=== PATIENT | female | born 1965 | race Hispanic/Latino ===

== ENCOUNTER → 2023-06-07 | Outpatient (CLI) | payer MEDICARE ==
[2023-06-07 10:10] LABS: HEMATOCRIT(ML) 43.4 % (36.0-46.0); HEMOGLOBIN 14.4 g/dL (12.0-15.0); MEAN CORP HGB 30.5 pg (26-34); MEAN CORP HGB CONCENTRATION 33.2 g/dL (33-36.5); MEAN CORP VOLUME 91.9 fL (78-100); RED BLOOD CELL 4.72 10^6/uL (4.00-5.20); RED CELL DISTRIBUTION WIDTH 11.8 % (11.5-14.5); WHITE BLOOD CELL 4.6 10^3/uL (4.5-11.0)
[2023-06-07 10:32] LABS: ALBUMIN(ML) 3.7 g/dL (3.4-5.0); ALBUMIN/GLOBULIN RATIO 1.193; ANION GAP 10.8; BUN/CREATININE RATIO 25.64 (10.0-20.0); CALCIUM 9.3 mg/dL (8.4-10.5); CARBON DIOXIDE 26.4 mmol/L (20.0-32); CREATININE SERUM 0.78 mg/dL (0.59-1.40); EST GFR, NON-AA 75.6 (>/=60); LDL/HDL RATIO 2.2; POTASSIUM 4.2 mmol/L (3.6-5.2)
== END | disposition home or self-care (01) ==
LOC: LAB 09:50
PROVIDERS: ATTEND Nurse Practitioner Family
DX: I10 Essential (primary) hypertension (principal); K59.00 Constipation, unspecified; E11.9 Type 2 diabetes mellitus without complications
CPT/HCPCS: 36415; 80053; 80061; 83036; 84439; 84443; 85027

== ENCOUNTER → 2023-07-28 | Outpatient (CLI) | payer MEDICARE ==
[2023-07-28 11:43] LABS: HEMOGLOBIN 14.5 g/dL (12.0-15.0); MEAN CORP HGB 30.7 pg (26-34); MEAN CORP HGB CONCENTRATION 33.7 g/dL (33-36.5); MEAN CORP VOLUME 90.9 fL (78-100); RED BLOOD CELL 4.73 10^6/uL (4.00-5.20); RED CELL DISTRIBUTION WIDTH 11.8 % (11.5-14.5); WHITE BLOOD CELL 4.8 10^3/uL (4.5-11.0)
[2023-07-28 12:30] LABS: ALANINE AMINOTRANSFERASE(ML) 18 U/L (12-78); ALBUMIN(ML) 3.7 g/dL (3.4-5.0); ALBUMIN/GLOBULIN RATIO 1.121; ALKALINE PHOSPHATASE 81 U/L (50-136); ASPARTATE AMINO TRANSFERASE 13 U/L (0-35); CALCIUM 9.1 mg/dL (8.4-10.5); CARBON DIOXIDE 27.1 mmol/L (20.0-32); CREATINE KINASE 85 U/L (26-192); CREATINE KINASE MB 1.6 ng/mL (0.5-3.6); CREATININE SERUM 0.78 mg/dL (0.59-1.40); EST GFR, NON-AA 75.6 (>/=60); GLUCOSE 94 mg/dL (74-106); POTASSIUM 4.1 mmol/L (3.6-5.2); SODIUM 140 mmol/L (132-145)
[2023-07-28 12:32] LABS: TROPONIN I HIGH SENSITIVITY < 4 ng/L (0-50)
== END | disposition home or self-care (01) ==
LOC: RAD 11:20
PROVIDERS: ATTEND Nurse Practitioner Family
DX: R07.9 Chest pain, unspecified (principal); R06.00 Dyspnea, unspecified
CPT/HCPCS: 36415; 71046; 80053; 82550; 82553; 83615; 83874; 83880; 84484; 85027

== ENCOUNTER → 2025-05-10 | Outpatient (CLI) | payer MEDICARE ==
[2025-05-10 13:45] LABS: HEMATOCRIT(ML) 42.6 % (36.0-46.0); MEAN CORP HGB 30.6 pg (26-34); MEAN CORP HGB CONCENTRATION 33.6 g/dL (33-36.5); MEAN CORP VOLUME 91.0 fL (78-100); RED BLOOD CELL 4.68 10^6/uL (4.00-5.20); RED CELL DISTRIBUTION WIDTH 11.8 % (11.5-14.5); WHITE BLOOD CELL 3.8 10^3/uL (4.5-11.0)
[2025-05-10 13:46] LABS: BASOPHIL # 0.0 10^3/uL (0.0-0.1); BASOPHIL % 0.3 % (0.1-1.2); EOSINOPHIL # 0.0 10^3/uL (0.0-0.2); EOSINOPHIL % 1.1 % (0.0-5.0); IG % 0.00 % (0.00-0.50); LYMPHOCYTES # 1.28 10^3/uL1 (1.0-4.8); LYMPHOCYTES % 33.7 % (24.0-44.0); MONOCYTES # 0.3 10^3/uL (0.3-0.8); MONOCYTES % 7.1 % (5.0-12.0); NEUTROPHIL # 2.2 10^3/uL (1.8-7.7); NEUTROPHILS % 57.8 % (41.0-85.0)
[2025-05-10 14:17] LABS: ALANINE AMINOTRANSFERASE(ML) 23.0 U/L (12-78); ALBUMIN(ML) 4.0 g/dL (3.4-5.0); CREATININE SERUM 0.59 mg/dL (0.59-1.40); EST GFR, NON-AA 103.6 (>/=60); LDL/HDL RATIO 1.8
== END | disposition home or self-care (01) ==
LOC: LAB 13:19
PROVIDERS: ATTEND Nurse Practitioner Family
DX: I10 Essential (primary) hypertension (principal); E55.9 Vitamin D deficiency, unspecified; Z79.899 Other long term (current) drug therapy
CPT/HCPCS: 36415; 80053; 80061; 82306; 83036; 85025